=== PATIENT | female | born 1995 | race Caucasian/White ===

== ENCOUNTER 2025-05-28 08:52 | Outpatient (CLI) | payer OTHER, SELFPAY | END 2025-05-28 08:53 | disposition home or self-care (01) | LOC: INJ CL 08:54 | PROVIDERS: Visit Provider Family Medicine | DX: M54.16 Radiculopathy, lumbar region (principal); M51.26 Other intervertebral disc displacement, lumbar region | CPT/HCPCS: 64483; J1100; Q9966 ==